=== PATIENT | male | born 1955 | race Caucasian/White ===

== ENCOUNTER 2019-02-16 09:48 | Emergency (ER) | payer MEDICAID ==
[~2019-02-16] VITALS: Ht 180.3 cm; Wt 123.8 kg
[2019-02-16 09:51] VITALS: Ht 180.3 cm; Wt 123.8 kg
[2019-02-16 11:39] VITALS: BP 140/66
== END 2019-02-16 11:39 | disposition home or self-care (01) ==
LOC: ED 09:48
DX: L02.416 Cutaneous abscess of left lower limb (principal); R11.2 Nausea with vomiting, unspecified; R50.9 Fever, unspecified
CPT/HCPCS: 99406; J2001; J3010